=== PATIENT | female | born 1965 | race Asian ===

== ENCOUNTER 2018-09-29 16:50 | Emergency (ER) | payer BC, OTHER ==
[~2018-09-29] VITALS: Ht 152.4 cm; Wt 40.8 kg
[2018-09-29] MEDS ORDERED: NKM (17:04)
[2018-09-29 17:05] VITALS: BP 148/100
--- NOTE | 2018-09-29 17:09 | NUR ---
ED Nurse Note: Pt from home but came from restaurant, c/o dizziness, cold sweats and chest pressure making it constricting to breathe. Pt a&ox4 and ambulatory. VS taken with high BP of 148/100. Kemar monitor and carry out MD orders.
[2018-09-29] MEDS ORDERED: Sodium Chloride 500ML 500 ML IV ONE (17:11)
[2018-09-29] MEDS ORDERED: LORazepam Inj 2mg/ml 1ml IV ONE (17:15)
--- NOTE | 2018-09-29 18:02 | Emergency Room Report ---
History of Present Illness General Chief Complaint: General Complaint Source: Patient Present Illness HPI Patient had just had food at a restaurant including a bloody Maryana. She was driving and started to feel chest pressure shortness of breath and tingling around her mouth and hands. She felt she was going to pass out. She's not seen a doctor for a long time. She doesn't drink every day. She has slight amount of sharp chest pain the left sternal area in the chest wall. No calf pain or edema. He does not feel that the reaction was in relation to allergies. A week ago patient had similar episodes however it was not as severe. She is not sure what set that off. She has been traveling between [place] and [place]. 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 She agrees that she has stress. No fevers, chills, palpitations, nausea, vomiting, diarrhea, dysuria, abdominal pain, shortness of breath, depression, visual changes, headache. No risk factors for cardiac disease. No chronic medications taken. Last period was 2 months ago Allergies: Coded Allergies: NAPROXEN (Verified Allergy, Unknown, 09/29/18) facial swelling Patient History Past Medical History: see triage record Social History: Reports: alcohol use; Denies: smoking Social History Narrative Property management Last Menstrual Period: 2 months ago Reviewed Nursing Documentation: PMH: Agreed; PSxH: Agreed Nursing Documentation-PMH Past Medical History: No Stated History Review of Systems All Other Systems: negative except mentioned in HPI Physical Exam Vital Signs Date Time Temp Pulse Resp B/P (MAP) Pulse Ox O2 Delivery O2 Flow Rate FiO2 09/29/18 16:57 97.9 71 16 132/91 98 Room Air Sp02 EP Interpretation: reviewed, normal General Appearance: well appearing, no apparent distress, GCS 15 Head: normocephalic Eyes: bilateral eye normal inspection, bilateral eye PERRL ENT: moist mucus membranes Neck: supple Respiratory: chest non-tender, lungs clear, normal breath sounds Cardiovascular #1: regular rate, rhythm, no edema Cardiovascular #2: 2+ radial (R) Gastrointestinal: normal inspection, normal bowel sounds, non tender, no mass, non-distended, scaphoid Genitourinary: no CVA tenderness Musculoskeletal: back normal, gait/station normal, normal range of motion, no calf tenderness, Mary's Sign negative Neurologic: alert, oriented x3, motor strength/tone normal, DTRs symmetric, sensory intact, normal gait, speech normal Psychiatric: anxious Skin: normal inspection, warm/dry Medical Decision Making Diagnostic Impression: Primary Impression: Hyperventilation ER Course Patient presents with dyspnea dizziness and chest pain. Somewhat better at the moment. Differential includes acute myocardial infarction, pulmonary embolus, acute hyperventilation, electrolyte abnormality, arrhythmia, perimenopausal symptomatology amongst others. Patient be evaluated with EKG, chest x-ray and labs. The patient will be treated with some gentle IV hydration and also small dose of Ativan. EKG Normal sinus rhythm normal tracing without any changes. Chest x-ray clear and unremarkable. White count minimally elevated. CMP normal. Urinalysis and tox screen negative. Patient improved with treatment and observation. Discussed findings and possible etiology. No medical emergency at this time. Patient stable for outpatient observation and treatment. Laboratory Tests Test 09/29/18 17:44 09/29/18 17:46 White Blood Count 11.1 K/UL (4.8-10.8) H Red Blood Count 4.29 M/UL (4.20-5.40) Hemoglobin 11.5 G/DL (12.0-16.0) L Hematocrit 35.7 % (37.0-47.0) L Mean Corpuscular Volume 83 FL (80-99) Mean Corpuscular Hemoglobin 26.7 PG (27.0-31.0) L Mean Corpuscular Hemoglobin Concent 32.1 G/DL (32.0-36.0) Red Cell Distribution Width 14.6 % (11.6-14.8) Platelet Count 239 K/UL (150-450) Mean Platelet Volume 9.9 FL (6.5-10.1) Neutrophils (%) (Auto) 84.1 % (45.0-75.0) H Lymphocytes (%) (Auto) 11.5 % (20.0-45.0) L Monocytes (%) (Auto) 3.5 % (1.0-10.0) Eosinophils (%) (Auto) 0.4 % (0.0-3.0) Basophils (%) (Auto) 0.5 % (0.0-2.0) Prothrombin Time 10.0 SEC (9.30-11.50) Prothrombin Time INR 0.9 (0.9-1.1) PTT 29 SEC (23-33) Sodium Level 139 MMOL/L (136-145) Potassium Level 3.9 MMOL/L (3.5-5.1) Chloride Level 101 MMOL/L (98-107) Carbon Dioxide Level 28 MMOL/L (21-32) Anion Gap 10 mmol/L (5-15) Blood Urea Nitrogen 15 mg/dL (7-18) Creatinine 0.7 MG/DL (0.55-1.30) Estimate Glomerular Filtration Rate > 60 mL/min (>60) Glucose Level 104 MG/DL (74-106) Calcium Level 9.7 MG/DL (8.5-10.1) Total Bilirubin 0.3 MG/DL (0.2-1.0) Aspartate Amino Transferase (AST) 18 U/L (15-37) Alanine Aminotransferase (ALT) 19 U/L (12-78) Alkaline Phosphatase 58 U/L (46-116) Total Creatine Kinase 55 U/L (26-308) Troponin I 0.000 ng/mL (0.000-0.056) Pro-B-Type Natriuretic Peptide 68 pg/mL (0-125) Total Protein 8.5 G/DL (6.4-8.2) H Albumin 4.5 G/DL (3.4-5.0) Globulin 4.0 g/dL Albumin/Globulin Ratio 1.1 (1.0-2.7) Serum Alcohol < 3 mg/dL Urine Color Pale yellow Urine Appearance Clear Urine pH 8 (4.5-8.0) Urine Specific Viola 1.015 (1.005-1.035) Urine Protein Negative (NEGATIVE) Urine Glucose (UA) Negative (NEGATIVE) Urine Ketones Negative (NEGATIVE) Urine Blood Negative (NEGATIVE) Urine Nitrite Negative (NEGATIVE) Urine Bilirubin Negative (NEGATIVE) Urine Urobilinogen Normal MG/DL (0.0-1.0) Urine Leukocyte Esterase Negative (NEGATIVE) Urine Opiates Screen Negative (NEGATIVE) Urine Barbiturates Screen Negative (NEGATIVE) Phencyclidine (PCP) Screen Negative (NEGATIVE) Urine Amphetamines Screen Negative (NEGATIVE) Urine Benzodiazepines Screen Negative (NEGATIVE) Urine Cocaine Screen Negative (NEGATIVE) Urine Marijuana (THC) Screen Negative (NEGATIVE) EKG Diagnostic Results Rate: normal Rhythm: NSR ST Segments: no acute changes Rhythm Strip Diag. Results EP Interpretation: yes Rhythm: NSR, no PVC's, no ectopy Chest X-Ray Diagnostic Results Chest X-Ray Diagnostic Results : Chest X-Ray Ordered: Yes # of Views/Limited/Complete: 1 View Indication: Shortness of Breath EP Interpretation: Yes Interpretation: no consolidation, no effusion, no pneumothorax Impression: No acute disease Electronically Signed by: Electronically signed by Sebastian Peres MD Last Vital Signs Date Time Temp Pulse Resp B/P (MAP) Pulse Ox O2 Delivery O2 Flow Rate FiO2 09/29/18 19:45 97.9 69 24 112/79 100 Room Air Status: improved Disposition: HOME, SELF-CARE Condition: Improved Scripts Hydroxyzine Pamoate (VISTARIL) 25 Mg Capsule 25 MG PO Q8HR PRN for anxiety or dyspnea, #10 CAP Prov: Sebastian Peres MD 09/29/18 Sebastian Peres MD Sep 29, 2018 18:02
[2018-09-29 18:07] LABS: APPEARANCE,URINE CLEAR; BILIRUBIN, URINE NEGATIVE (NEGATIVE); COLOR,URINE PALE YELLOW; GLUCOSE, URINE (UA) NEGATIVE (NEGATIVE); KETONES,URINE NEGATIVE (NEGATIVE); LEUKOCYTE ESTERASE ,URINE NEGATIVE (NEGATIVE); NITRITE,URINE NEGATIVE (NEGATIVE); PH,URINE 8 (4.5-8.0); PROTEIN,URINE NEGATIVE (NEGATIVE); UROBILINOGEN,URINE NORMAL MG/DL (0.0-1.0)
[2018-09-29 18:11] LABS: BASOPHILS % (AUTO) 0.5 % (0.0-2.0); EOSINOPHILS % (AUTO) 0.4 % (0.0-3.0); HEMATOCRIT 35.7 % (37.0-47.0); HEMOGLOBIN 11.5 G/DL (12.0-16.0); LYMPHOCYTES % (AUTO) 11.5 % (20.0-45.0); MEAN CORPUSCULAR VOLUME 83 FL (80-99); MONOCYTES % (AUTO) 3.5 % (1.0-10.0); NEUTROPHILS % (AUTO) 84.1 % (45.0-75.0); PLATELET COUNT 239 K/UL (150-450); RED BLOOD COUNT 4.29 M/UL (4.20-5.40); RED CELL DISTRIBUTION WIDTH 14.6 % (11.6-14.8); WHITE BLOOD COUNT 11.1 K/UL (4.8-10.8)
[2018-09-29 18:20] LABS: INR 0.9 (0.9-1.1)
[2018-09-29 18:21] LABS: ANION GAP 10 mmol/L (5-15); BLOOD UREA NITROGEN 15 mg/dL (7-18); CALCIUM 9.7 MG/DL (8.5-10.1); CARBON DIOXIDE 28 MMOL/L (21-32); CHLORIDE 101 MMOL/L (98-107); CREATININE 0.7 MG/DL (0.55-1.30); POTASSIUM 3.9 MMOL/L (3.5-5.1); SODIUM 139 MMOL/L (136-145)
[2018-09-29 18:32] LABS: ALANINE AMINOTRANSFERASE 19 U/L (12-78); ALBUMIN 4.5 G/DL (3.4-5.0); ALBUMIN/GLOBULIN RATIO 1.1 (1.0-2.7); ALKALINE PHOSPHATASE 58 U/L (46-116); ASPARTATE AMINO TRANSFERASE 18 U/L (15-37); BILIRUBIN,TOTAL 0.3 MG/DL (0.2-1.0); CREATINE KINASE 55 U/L (26-308)
[2018-09-29 18:45] VITALS: BP 112/79
--- NOTE | 2018-09-29 19:17 | Diagnostic Imaging Report ---
History: SOB Exam: XR CXR 1 VIEW Comparison: None available FINDINGS: The lungs are clear. The cardiac and mediastinal contours are within limits. The visualized osseous structures appear within limits. IMPRESSION: No evidence of acute disease.
[2018-09-29] MEDS ORDERED: VISTARIL25 M1 PO (19:26)
--- NOTE | 2018-09-29 19:31 | NUR ---
HAND-OFF: Report given to Angelica LOZANO. Endorsed discharge to manager assisted living RN.
--- NOTE | 2018-09-29 19:35 | NUR ---
ED Nurse Note: Recieved report to resume care, pt in bed being d/c to home, iv line removed and v/s taken, pt is awake, alert and oriented x 4, pt is ambulatory with steady gait,, denies pain, no sob or labored breathing, with family member to drive, pt given f/u info, after care instructions, arm band and iv line removed without complications, and signed all forms, nad noted during d/c to home.
[2018-09-29 19:45] VITALS: BP 112/79
== END 2018-09-29 19:40 | disposition home or self-care (01) ==
LOC: EMR 18:16
DX: R06.4 Hyperventilation (principal); R42 Dizziness and giddiness; R06.00 Dyspnea, unspecified
CPT/HCPCS: 36415; 71045; 80053; 80307; 81003; 82550; 83880; 84484; 85025; 85610; 85730; 93005; 96374; 99284; G0480; J7040; 80329